=== PATIENT | male | born 1990 | race African-American/Black ===

== ENCOUNTER 2020-12-13 15:57 | Emergency (ER) | payer BC ==
[~2020-12-13] VITALS: Ht 185.4 cm; Wt 83.5 kg
[2020-12-13] MEDS ORDERED: ACETAMINOPHEN 325 MG TAB PO ONE (16:45)
[2020-12-13] MEDS ORDERED: ACETAMINOPHEN 325 MG TAB ONE (17:15)
[2020-12-13] MEDS ORDERED: NAPROSYN500 MG PO ×2 (17:39→17:40)
[2020-12-13] MEDS ORDERED: HYDROCODON-ACE1 EA12 PO (17:42)
== END 2020-12-13 18:04 | disposition home or self-care (01) ==
LOC: FSED 16:10
DX: M25.571 Pain in right ankle and joints of right foot (principal); W01.0XXA Fall on same level from slipping, tripping and stumbling without subsequent striking against object, initial encounter; Y93.67 Activity, basketball; Y92.310 Basketball court as the place of occurrence of the external cause; F17.210 Nicotine dependence, cigarettes, uncomplicated
CPT/HCPCS: 99284